=== PATIENT | female | born 1985 | race Two or more races ===

== ENCOUNTER 2017-07-25 23:52 | Emergency (ER) | payer OTHER ==
[2017-07-26 00:04] VITALS: RESP 16; TEMP 98.1
[2017-07-26] MEDS ORDERED: IBUPROFEN 600 MG TAB PO ONE (01:57)
--- NOTE | 2017-07-26 01:57 | EDPHY ---
H & P Stated Complaint: says she fell doing a handstand this am, now having neck/ upper back pain Time Seen by Provider: 07/26/17 00:09 HPI/ROS: Chief Complaint: Back pain HPI: 32-year-old woman was doing a hand stand he yesterday morning. She lost her balance and fell onto her back. Initially she was 5 days having worsening bilateral back pain and some neck pain. States that she did take some ibuprofen yesterday morning with relief but is not in any medicine since that time. When lying in bed tonight she felt a little bit short of breath. No numbness or weakness. No neck pain. Abdominal pain. No headache. No loss of consciousness. ROS: 10 point Review of Systems is negative except as noted in the HPI. PMH: Denies Social History: No smoking, occasional alcohol, no recreational drug use Family History: non-contributory Physical Exam: Gen: Awake, Alert, No Distress HEENT: Nose: no rhinorrhea Eyes: PERRLA, EOMI Mouth: Moist mucosa Neck: Supple, no JVD a no midline tenderness, full range of motion without pain Chest: nontender, lungs clear to auscultation Heart: S1, S2 normal, no murmur Abd: Soft, non-tender, no guarding Back: no CVA tenderness, no midline tenderness mild bilateral paraspinal soft tissue tenderness. Ext: no edema, non-tender Skin: no rash Neuro: CN II-XII intact, Sensation grossly intact, Strength 5/5 in bilateral upper and lower extremities - Medical/Surgical History Hx Asthma: No Hx Chronic Respiratory Disease: No Hx Diabetes: No Hx Cardiac Disease: No Hx Renal Disease: No Hx Cirrhosis: No Hx Alcoholism: No Hx HIV/AIDS: No Hx Splenectomy or Spleen Trauma: No Other PMH: anxiety, ovarian cyst - Social History Smoking Status: Former smoker Constitutional: Initial Vital Signs Temperature (C) 36.7 C 07/26/17 00:00 Heart Rate 91 07/26/17 00:00 Respiratory Rate 16 07/26/17 00:00 Blood Pressure 130/88 H 07/26/17 00:00 O2 Sat (%) 100 07/26/17 00:00 O2 Delivery Mode Room Air Allergies/Adverse Reactions: magnesium Allergy (Verified 07/26/17 00:05) Home Medications: Medication Instructions Recorded Miscellaneous Medical Supply [NO 1 ea MISC AD 04/08/12 HOME MEDS] Medical Decision Making - Diagnostics Imaging Results: Chest x-ray is normal Imaging: I viewed and interpreted images myself ED Course/Re-evaluation: 32-year-old with back pain status post fall for doing a handstand. She is completely neurologically intact. No midline tenderness. She has full range of motion of her neck without any discomfort. Is not complaining of any neck pain here. Has some bilateral back pain. Likely secondary to some contusion. She has not been taking any pain medications since yesterday morning. Will discharge with continuing the ibuprofen, 0 up with primary care as an outpatient. Departure - Departure Disposition: Home, Routine, Self-Care Clinical Impression: Back pain Condition: Good Instructions: Back Pain (ED) Additional Instructions: Take ibuprofen, 600 mg, 3 times a day. You may also take acetaminophen, 1000 mg every 6 hours. Make sure to remain active. Do not lay in bed or sit in a chair for long periods. It is important to remain active and keep your back moving in order to improve. Please see the attached back exercise instructions. Referrals: Molly Man MD [Primary Care Provider] - As per Instructions
[2017-07-26 02:17] VITALS: BP 128/77; PULSE 88; O2SAT 96
== END 2017-07-26 02:16 | disposition home or self-care (01) ==
DX: S39.92XA Unspecified injury of lower back, initial encounter (principal); Z87.891 Personal history of nicotine dependence; W19.XXXA Unspecified fall, initial encounter

== ENCOUNTER 2017-10-15 15:50 | Emergency (ER) | payer OTHER ==
[2017-10-15] MEDS ORDERED: ONDANSETRON 4 MG/2 ML VIAL IVP ONE (16:08)
[2017-10-15] MEDS ORDERED: NS 1,000 ML IV ONE ×2 (16:08→16:52)
[2017-10-15] MEDS ORDERED: METOCLOPRAMIDE 10 MG/2 ML VIAL IVP ONE (16:11)
[2017-10-15 16:21] LABS: PLATELET COUNT 308 10^3/uL (150-400)
[2017-10-15] MEDS ORDERED: KETOROLAC 15 MG/1 ML SDV IVP ONE (16:24)
[2017-10-15] MEDS ORDERED: FAMOTIDINE 20 MG/2 ML SDV IVP ONE (16:39)
--- NOTE | 2017-10-15 16:55 | EDPHY ---
H & P Stated Complaint: c/o eating bad salmon last night with vomiting and abd cramping Time Seen by Provider: 10/15/17 16:09 HPI/ROS: This patient reports eating salmon and broccoli last night and then developing rumbling in her belly associated with cramping discomfort the became severe at some point was associated with onset of loose watery diarrhea followed by vomiting. She reports that she did not finish eating the fish because something about it tasted strange to her. She thinks the facies responsible for symptoms. She had multiple episodes of vomiting through the night with difficulty sleeping. Last episode of emesis was 6:00 a.m. But she has persistent nausea and is unable tolerate fluids today. She has persistent diarrhea throughout the day that is still loose and watery. Her abdominal cramping is diminished to mild intensity, currently 2/10. She reports that she had associated red flushed face and lightheadedness while on her feet. She reports subjective fevers as well. She drove herself here by private vehicle for evaluation and wishes to drive home if able. ROS: Constitutional: Subjective fevers though none measured. Fatigue for lack of sleep last night. HEENT: No recent URI symptoms or other complaints new line pulmonary: No cough shortness of breath Cardiovascular: Lightheaded with no chest pain. Integumentary: Read flushed face but no other rash. No hives. : Last menstrual period was normal timing 2 weeks ago. No dysuria or other urinary symptoms. Neuro: She reports onset of headache 2 hr prior to arrival generalized in location similar to prior but that more severe than her typical. Currently 5/ 10 intensity. She denies any photophobia. No focal numbness tingling weakness. No scintillating scotoma. No neck stiffness. Infectious disease: No recent foreign travel. 10 point ROS is otherwise negative. Source: Patient Exam Limitations: No limitations - Personal History LMP (Females 10-55): 15-21 Days Ago Current Tetanus Diphtheria and Acellular Pertussis (TDAP): Yes - Medical/Surgical History Hx Asthma: No Hx Chronic Respiratory Disease: No Hx Diabetes: No Hx Cardiac Disease: No Hx Renal Disease: No Hx Cirrhosis: No Hx Alcoholism: No Hx HIV/AIDS: No Hx Splenectomy or Spleen Trauma: No Other PMH: anxiety, ovarian cyst - Family History Significant Family History: No pertinent family hx - Social History Smoking Status: Former smoker Alcohol Use: None Drug Use: None Additional Social History: No recent foreign travel. - Physical Exam Exam: General Appearance: Alert, no distress. Eyes: Pupils equal and round no pallor or injection. ENT, Mouth: Mucous membranes dry. Respiratory: There are no retractions, lungs are clear to auscultation. Cardiovascular: Regular rate and rhythm. Gastrointestinal: Normoactive to slightly hyperactive bowel sounds soft, lower belly tenderness is present which is [id number]. No guarding or rebound. Back: No CVA tenderness Neurological: GCS 15 with no focal deficits. Skin: Warm and dry, no rashes. Musculoskeletal: Neck is supple nontender. Extremities are symmetrical, full range of motion. Psychiatric: Mood and affect normal DIFFERENTIAL DIAGNOSIS: After history and physical exam differential diagnosis was considered for viral gastroenteritis, scromboid fish poisoning, Staph food poisoning, other food poisoning, dehydration, UTI Constitutional: Initial Vital Signs Temperature (C) 36.6 C 10/15/17 15:59 Heart Rate 62 10/15/17 15:59 Respiratory Rate 18 10/15/17 15:59 Blood Pressure 120/75 10/15/17 15:59 O2 Sat (%) 94 10/15/17 15:59 O2 Delivery Mode Room Air Allergies/Adverse Reactions: magnesium Allergy (Verified 07/26/17 00:05) Home Medications: Medication Instructions Recorded Miscellaneous Medical Supply [NO 1 ea MIS AD 04/08/12 HOME MEDS] Hyoscyamine Sulfate [Levsin, 0.125 - 0.25 mg SL Q6 PRN #20 tab 10/15/17 Hyomax-Sl 0.125 mg (*)] Ondansetron Odt [Zofran Odt] 4 - 8 mg PO Q4PRN PRN #4 tab 10/15/17 Medical Decision Making ED Course/Re-evaluation: IV 2 L normal saline bolus, Zofran IV with resolution of nausea Pepcid 40 mg IV Toradol 50 mg IV with improvement and mild cramping in aches. Labs: Mild leukocytosis. Chemistries normal. HCG negative. Patient did not realize we wanted a urine sample urinated without giving us a sample. Given lack of urinary findings in terms of symptoms will hold off on pursuing UA this time. Discussion: Patient with vomiting diarrhea flushed feeling and headache after eating fish with differential diagnosis that could include viral gastroenteritis , scromboid fish poisoning, staffed with poisoning or other. She improved significantly with treatment here. Her facial erythema resolved after Pepcid. She wanted to drive home so held off on Benadryl or Reglan. I counseled her regarding her labs. Patient will go home on Zofran, Light diet Levsin if needed for cramps plan to return for any significant worsening despite the treatment plan. - Data Points Laboratory Results: Laboratory Results 10/15/17 16:06 10/15/17 16:06 10/15/17 10/15/17 10/15/17 16:06 16:06 16:06 WBC 10.17 10^3/uL H 10^3/uL (3.80-9.50) RBC 4.94 10^6/uL 10^6/uL (4.18-5.33) Hgb 13.9 g/dL g/dL (12.6-16.3) Hct 41.6 % % (38.0-47.0) MCV 84.2 fL fL (81.5-99.8) MCH 28.1 pg pg (27.9-34.1) MCHC 33.4 g/dL g/dL (32.4-36.7) RDW 12.7 % % (11.5-15.2) Plt Count 308 10^3/uL 10^3/uL (150-400) MPV 9.8 fL fL (8.7-11.7) Neut % (Auto) 86.6 % H % (39.3-74.2) Lymph % (Auto) 6.9 % L % (15.0-45.0) [place] % (Auto) 5.5 % % (4.5-13.0) Eos % (Auto) 0.3 % L % (0.6-7.6) Baso % (Auto) 0.2 % L % (0.3-1.7) Nucleat RBC Rel Count 0.0 % % (0.0-0.2) Absolute Neuts (auto) 8.81 10^3/uL H 10^3/uL (1.70-6.50) Absolute Lymphs (auto) 0.70 10^3/uL L 10^3/uL (1.00-3.00) Absolute Monos (auto) 0.56 10^3/uL 10^3/uL (0.30-0.80) Absolute Eos (auto) 0.03 10^3/uL 10^3/uL (0.03-0.40) Absolute Basos (auto) 0.02 10^3/uL 10^3/uL (0.02-0.10) Absolute Nucleated RBC 0.00 10^3/uL 10^3/uL (0-0.01) Immature Gran % 0.5 % % (0.0-1.1) Immature Gran # 0.05 10^3/uL 10^3/uL (0.00-0.10) Sodium 138 mEq/L mEq/L (135-145) Potassium 3.7 mEq/L mEq/L (3.5-5.2) Chloride 101 mEq/L mEq/L (97-110) Carbon Dioxide 24 mEq/l mEq/l (22-31) Anion Gap 13 mEq/L mEq/L (8-16) BUN 11 mg/dL mg/dL (7-23) Creatinine 0.6 mg/dL mg/dL (0.6-1.0) Estimated GFR > 60 Glucose 100 mg/dL mg/dL (70-100) Calcium 9.4 mg/dL mg/dL (8.5-10.4) Beta HCG, Qual NEGATIVE Medications Given: Discontinued Medications Diphenhydramine HCl (Benadryl Injection) 25 mg IVP EDNOW ONE Stop: 10/15/17 16:12 Last Admin: 10/15/17 16:47 Dose: Not Given Famotidine (Pepcid) 40 mg IVP EDNOW ONE Stop: 10/15/17 16:40 Last Admin: 10/15/17 16:45 Dose: 40 mg Sodium Chloride (Ns) 1,000 mls @ 0 mls/hr IV ONCE ONE PRN Reason: Wide Open Stop: 10/15/17 16:09 Last Admin: 10/15/17 16:12 Dose: 1,000 mls Sodium Chloride (Ns) 1,000 mls @ 0 mls/hr IV ONCE ONE; Wide Open PRN Reason: Protocol Stop: 10/15/17 16:53 Last Admin: 10/15/17 16:55 Dose: 1,000 mls Ketorolac Tromethamine (Toradol) 15 mg IVP EDNOW ONE Stop: 10/15/17 16:25 Last Admin: 10/15/17 16:35 Dose: 15 mg Metoclopramide HCl (Reglan Injection) 10 mg IVP EDNOW ONE Stop: 10/15/17 16:12 Last Admin: 10/15/17 16:46 Dose: Not Given Ondansetron HCl (Zofran) 4 mg IVP EDNOW ONE Stop: 10/15/17 16:09 Last Admin: 10/15/17 16:12 Dose: 4 mg Departure - Departure Disposition: Home, Routine, Self-Care Clinical Impression: Gastroenteritis, Dehydration Condition: Good Instructions: Gastroenteritis (ED), Food Poisoning (ED) Additional Instructions: Diagnosis: Gastroenteritis 2. Dehydration You may have had food poisoning from the salmon such as Staph food poisoning or scromboid fish poisoning. Viruses frequently cause similar symptoms. Plan: Drink plenty fluids Light diet until he feel improved-bananas, rice, applesauce, soup and similar Zofran if needed for any recurrent nausea or vomiting -40 mg under the tongue per 6 hr Levsin if needed for abdominal cramping 1-2 under the tongue per 6 hr Consider a Pepcid 40 mg p.o. Once a day (starting tomorrow since you had a dose today) until your symptoms have resolved in addition. Return for any significant worsening despite treatment plan. Referrals: Molly Man MD [Primary Care Provider] - As per Instructions Prescriptions: Hyoscyamine Sulfate [Levsin, Hyomax-Sl 0.125 mg (*)] 0.125 - 0.25 mg SL Q6 PRN # 20 tab PRN Reason: abdominal cramping Ondansetron Odt [Zofran Odt] 4 - 8 mg PO Q4PRN PRN #4 tab PRN Reason: Vomiting
[2017-10-15 18:08] VITALS: BP 123/62
== END 2017-10-15 18:07 | disposition home or self-care (01) ==
LOC: CED 15:50
DX: K52.9 Noninfective gastroenteritis and colitis, unspecified (principal); E86.0 Dehydration; Z87.891 Personal history of nicotine dependence
CPT/HCPCS: 80048-PO; 84703-PO; 85025-PO; 96374; J2405